=== PATIENT | male | born 1955 | race Two or more races ===

== ENCOUNTER 2024-02-09 14:25 | Inpatient (IN) | payer OTHER ==
[~2024-02-09] VITALS: Ht 170.2 cm; Wt 79.0 kg
[~2024-02-09 14:25] MED LIST: ASPI1TAB20 PO; DOXY100C79 PO; HYDR-4902 PO; SENN-58 PO
--- NOTE | 2024-02-09 18:30 | DVH ---
EXAM: XY R KNEE 3V XRAY CLINICAL HISTORY: pain COMPARISON: XY L ANKLE 2 VIEW XRAY on DOS: 02/18/23, XY L ANKLE 2 VIEW XRAY on DOS: 02/16/23 TECHNIQUE: XY R KNEE 3V XRAY Findings/Impression: 3 views of the right knee. There is no evidence of an acute fracture, dislocation, blastic, or lytic lesions. No radiopaque foreign bodies. No joint effusion. Mild soft tissue edema.
[2024-02-09 18:42] LABS: Basophils # (auto) 0.1 10 ^3/uL (0-0.2); Basophils % (auto) 0.7 % (0.0-2.0); Eosinophils # (auto) 0.1 10 ^3/uL (0-0.8); Eosinophils % (auto) 0.5 % (0.0-7.0); Hematocrit 44.7 % (41.0-53.0); Hemoglobin 15.2 g/dL (13.5-17.5); Lymphocytes # (auto) 1.8 10 ^3/uL (0.4-5.4); Lymphocytes % (auto) 17.3 % (10.0-50.0); Mean Corpuscular Hemoglobin 32.2 pg (28.0-32.0); Mean Corpuscular Hgb Conc. 34.1 g/dL (32.0-36.0); Mean Corpuscular Volume 94.6 fL (80.0-100.0); Monocytes # (auto) 0.8 10 ^3/uL (0-1.3); Monocytes % (auto) 7.8 % (0.0-12.0); Neutrophils # (auto) 7.7 10 ^3/uL (1.6-8.6); Neutrophils % (auto) 73.7 % (37.0-80.0); Platelet Count (auto) 331 10^3/uL (140-450); Red Blood Cells 4.72 10^6/uL (4.5-5.90); Red Cell Distribution Width 13.3 % (11.8-14.3); White Blood Cell 10.4 10^3/uL (4.4-10.8)
[2024-02-09] MEDS: cloNIDine HCL 0.1 MG TAB PO ONE (18:43)
[2024-02-09] MEDS: KETOROLAC TROMETH 30 MG/ML 1ML VIAL IM ONE (18:43)
[2024-02-09] MEDS ORDERED: cefTRIAXone W LIDOCAINE 1 GM IM IM ONE (18:45)
[2024-02-09 18:52] LABS: Chloride 105 mmol/L (98-107); Sodium 141 mmol/L (136-145)
[2024-02-09 18:53] LABS: Anion Gap 10 (5-15); Carbon Dioxide 26 mmol/L (20-31)
[2024-02-09] MEDS: LIDOCAINE 1% HCL (LOCAL ANESTH.) INJ 20ML MDV ONE (18:54)
[2024-02-09] MEDS: cefTRIAXone SOD 1,000 MG VL IM ONE (18:54)
--- NOTE | 2024-02-09 18:55 | ED.PDOC ---
History of Present Illness HPI Comments 68 y/o M, with a Hx of HTN and previous ankle fracture, presents with c/o right knee pain, swelling, and redness for the past 3 days. He reports no recent injuries along with any additional pertinent or relevant Hx, such as recent travel or strenuous activities. He denies having any tingling, numbness, or ot her associated symptoms or modifiers at this time. Chief Complaint: Lower Extremity Time Seen by MD: 18:10 Primary Care Provider: none Reviewed Notes: Nurses Notes, Medications, Allergies Allergies: Coded Allergies: NO KNOWN ALLERGIES (Unverified , 02/15/23) Home Meds Active Scripts Aspirin (Aspir-81) 81 Mg Tab, 1 TAB PO DAILY, #20 TAB 5 Refills Prov:CORWIN JOSÉ MD 02/20/23 Senna (Senokot) 8.6 Mg Tab, 1 TAB PO QPM, #20 TAB Prov:CORWIN JOSÉ MD 02/20/23 Hydrocodone-Acetaminophen (Hydrocodone Bitartrate/AC 5-325 mg) 1 Tab Tab, 1 TAB PO Q6HPRN PRN, #20 TAB Prov:CORWIN JOSÉ MD 02/20/23 Doxycycline (Monohydrate) (Doxycycline) 100 Mg Cap, 100 MG PO BID, #10 CAP Prov:CORWIN JOSÉ MD 02/20/23 Information Source: Patient Mode of Arrival: Ambulatory Severity: Moderate Timing: Hours Duration: Since onset Prehospital treatment: None Past Medical History PAST MEDICAL HISTORY: HTN Surgical History (Other): previous ankle fracture Family History Family History: Unknown Social History Smoker: Non-Smoker Alcohol: Denies ETOH Use Drugs: Denies Drug Use Lives In: Home Musculoskeletal: reports: others (right knee pain, swelling, and redness ) All Other Systems: Reviewed and Negative (negative unless other stated above or in HPI) Physical Exam General Appearance: No Apparent Distress, Normal HEENT: Normal ENT Inspection, Pharynx Normal, TMs Normal Neck: Full Range of Motion, Non-Tender, Normal, Normal Inspection Respiratory: Chest Non-Tender, Lungs Clear, No Accessory Muscle Use, No Respiratory Distress, Normal Breath Sounds Cardiovascular: No Edema, No JVD, No Murmur, No Gallop, Normal Peripheral Pulses, Regular Rate/Rhythm Breast Exam: Deferred Gastrointestinal: No Organomegaly, Non Tender, No Pulsatile Mass, Normal Bowel Sounds, Soft Genitalia: Deferred Pelvic: Deferred Rectal: Deferred Extremities: No calf tenderness, Normal capillary refill, Normal range of motion, No pedal edema, Swelling, Tender, Other (superficial garza area tenderness with erythema and mild warmth) Musculoskeletal : Apperance: Normal Neurologic: Alert, asset recovery specialist II-XII nml as Tested, No Motor Deficits, Normal Affect, Normal Mood, No Sensory Deficits Cerebellar Function: Normal Reflexes: Normal Skin: Dry, Normal Color, Warm Lymphatic: No Adenopathy Was a procedure done? Was a procedure done?: No Differential Dx Considerations may include: gout, bursitis, septic joint, cellulitis X-Ray, Labs, Meds, VS Vital Signs Date Time Temp Pulse Resp B/P (MAP) Pulse Ox O2 Delivery O2 Flow Rate FiO2 02/09/24 19:15 202/104 02/09/24 19:15 65 17 202/104 (136) 98 02/09/24 18:43 199/110 02/09/24 18:38 82 18 97 Room Air 02/09/24 18:38 97.8 82 18 199/110 (139) 97 97.8 02/09/24 15:08 98.0 81 16 162/100 (120) 97 Lab Test 02/09/24 18:23 Range/Units White Blood Count 10.4 4.4-10.8 10^3/uL Red Blood Count 4.72 4.5-5.90 10^6/uL Hemoglobin 15.2 13.5-17.5 g/dL Hematocrit 44.7 41.0-53.0 % Mean Corpuscular Volume 94.6 80.0-100.0 fL Mean Corpuscular Hemoglobin 32.2 H 28.0-32.0 pg Mean Corpuscular Hemoglobin Concent 34.1 32.0-36.0 g/dL Red Cell Distribution Width 13.3 11.8-14.3 % Platelet Count 331 140-450 10^3/uL Mean Platelet Volume 7.0 6.9-10.8 fL Neutrophils (%) (Auto) 73.7 37.0-80.0 % Lymphocytes (%) (Auto) 17.3 10.0-50.0 % Monocytes (%) (Auto) 7.8 0.0-12.0 % Eosinophils (%) (Auto) 0.5 0.0-7.0 % Basophils (%) (Auto) 0.7 0.0-2.0 % Neutrophils # (Auto) 7.7 1.6-8.6 10 ^3/uL Lymphocytes # (Auto) 1.8 0.4-5.4 10 ^3/uL Monocytes # (Auto) 0.8 0-1.3 10 ^3/uL Eosinophils # (Auto) 0.1 0-0.8 10 ^3/uL Basophils # (Auto) 0.1 0-0.2 10 ^3/uL Nucleated Red Blood Cells 0.0 % Erythrocyte Sedimentation Rate Pending Sodium Level 141 136-145 mmol/L Potassium Level 3.4 L 3.5-5.1 mmol/L Chloride Level 105 98-107 mmol/L Carbon Dioxide Level 26 20-31 mmol/L Anion Gap 10 5-15 Blood Urea Nitrogen 15 9-23 mg/dL Creatinine 1.11 0.700-1.30 mg/dL Glomerular Filtration Rate Calc 71 >90 mL/min BUN/Creatinine Ratio 13.5 10.0-20.0 Serum Glucose 117 H 74-106 mg/dL Calcium Level 10.4 8.7-10.4 mg/dL Current Medications Medications (Trade) Dose Ordered Sig/Zeyad Route Start Time Stop Time Status Last Admin Ketorolac Tromethamine (Toradol Injection) 30 mg ONCE ONCE IM 02/09/24 18:15 02/09/24 18:16 DC 02/09/24 18:43 Clonidine HCl (Catapres Tablet) 0.1 mg ONCE ONCE PO 02/09/24 18:45 02/09/24 18:46 DC 02/09/24 18:43 Ceftriaxone Sodium (Rocephin) 1,000 mg ONCE ONCE IM 02/09/24 19:00 02/09/24 19:12 DC 02/09/24 18:[address] [address] Ph: [phone] DIAGNOSTIC IMAGING Diagnostic Imaging Report : [id number] Signed PATIENT: GRACIELA GUY ACCT: [id number] UNIT: [id number] : 1955 LOC: ER ROOM / BED: / AGE / SEX: 68 / M ADM STATUS: REG ER SERVICE 08 ORDERING PHYSICIAN: WM ALINEZ MD PROCEDURE(s): RKN3 - R KNEE 3V XRAY REASON: pain ORDER NUMBER(s): [id number], ACCESSION NUMBER(s): [id number] EXAM: XY R KNEE 3V XRAY CLINICAL HISTORY: pain COMPARISON: XY L ANKLE 2 VIEW XRAY on DOS: 02/18/23, XY L ANKLE 2 VIEW XRAY on DOS: 02/16/23 TECHNIQUE: XY R KNEE 3V XRAY Findings/Impression: 3 views of the right knee. There is no evidence of an acute fracture, dislocation, blastic, or lytic lesions. No radiopaque foreign bodies. No joint effusion. Mild soft tissue edema. ATED BY: RAMANDEEP HOWE DO DICTATED DATE/TIME: 02/09/241826 SIGNED BY: RAMANDEEP HOWE DO SIGNED DATE/TIME: 02/09/241826 CC: Time of 1ST Reevaluation: 18:40 Reevaluation 1ST: Unchanged Time of 2ND Reevaluation: 19:26 Reevaluation 2ND: Unchanged Patient Education/Counseling: Diagnosis, Treatment, Prognosis, Need For Follow Up Family Education/Counseling: No Family Present Additional Information - I reviewed the following notes from patient's past medical encounters: hospital admission discharge summary report on 02/20/23 - The following tests were ordered, and results were reviewed by me: erythrocyte sediment, bmp, cbc, right knee x-ray - I reviewed and agreed with the following test results read by other provider: right knee X-ray - I discussed treatments and results with medical personnel pt had no trouble walking, but since the knee started to hurt, he has been having trouble weight bearing. although septic joint is a differential, it is unlikely, since the area of redness is prepatellar, not in the joint area. pt may have bursitis and cellulitis. i have covered him with antibiotics. he also has uncontrolled and worsening htn, with htn urgency. he is now on labetalol, as he did not respond to clonidine. pt will need to be admitted Departure 1 Departure Time of Disposition: 19:28 Impression: Primary Impression: Knee bursitis Qualified Codes: M70.41 - Prepatellar bursitis, right knee Additional Impressions: Cellulitis Qualified Codes: L03.115 - Cellulitis of right lower limb Hypertensive urgency Disposition: ADMITTED INPATIENT Admit to: ICU Condition: Stable Discharged With: Self Critical Care Note Critical Care Time?: Yes (55 min-critical care time only) Critical care comment: due to concerns for patient's condition worsening, the care required my highest attention and readiness to intervene. i reviewed the medical records, communicated with medical personnel, consultants, ordered the proper tests, treatments, reassessed the response and results. formulated a plan of care . total time does not include any procedures Stability Stability form required: No Heart Score Heart Score: Heart Score Response (Comments) Value History N/A 0 EKG N/A 0 Age N/A 0 Risk Factors N/A 0 Troponin N/A 0 Total 0 I personally scribed for WM LAINEZ MD ([email or web address]) on 02/09/24 at 18:55. Electronically submitted by Efrem Nunez ([email or web address]). WM LAINEZ MD Feb 09, 2024 18:55
[2024-02-09 18:59] LABS: BUN/Creatinine Ratio 13.5 (10.0-20.0); Blood Urea Nitrogen 15 mg/dL (9-23)
[2024-02-09 19:06] LABS: Calcium 10.4 mg/dL (8.7-10.4); Glucose 117 mg/dL (74-106); Potassium 3.4 mmol/L (3.5-5.1)
[2024-02-09] MEDS ORDERED: LABETALOL INJECTION 250 MG in SODIUM CHL 0.9% 200 ML IV ONE (19:30)
[2024-02-09 19:36] LABS: Erythrocyte Sedimentation Rate 34 mm/hr (0-20)
[2024-02-09] MEDS ORDERED: ACETAMINOPHEN 325 MG TAB PO PRN (20:30)
--- NOTE | 2024-02-09 20:59 | DVH ---
CHEST RADIOGRAPH Indication: admission Technique: Single frontal view of the chest was obtained COMPARISON: XY CHEST PORTABLE on DOS: 02/15/23 FINDINGS: Lines and Tubes: None Lungs: Clear Pleura: No effusion. No pneumothorax. Cardiomediastinal contours: Unremarkable Bones: Unremarkable IMPRESSION: 1. No acute disease.
[2024-02-09] MEDS: POTASSIUM CHL 20 Meq TABLET PO ONE (21:16)
[2024-02-09] MEDS: amLODIPine BESYLATE 5 MG TAB PO SCH (21:17)
[2024-02-09] MEDS: LABETALOL HCL 20 MG/4 ML VL IV ONE ×2 (21:18→22:47)
--- NOTE | 2024-02-10 00:51 | DVHHP2 ---
Admitting Diagnosis: Hypertensive urgency, right knee bursitis History of Present Illness History Source: Patient Exam Limitations: No limitations HPI Mr. Mikal Bran is a 68 yo male with a history of hypertension, ankle fracture who presents with a chief complaint of right knee pain and swelling x 3 days. Patient denies any recent trauma to right knee. Patient denies headaches, dizziness, nausea, vomiting, fevers, chills. Patient was found to have elevated blood pressure in the ED uncontrolled by Labetolol and Clonidine. Patient adm itted for further evaluation. Home Meds Active Scripts Aspirin (Aspir-81) 81 Mg Tab, 1 TAB PO DAILY, #20 TAB 5 Refills Prov:CORWIN JOSÉ MD 02/20/23 Senna (Senokot) 8.6 Mg Tab, 1 TAB PO QPM, #20 TAB Prov:CORWIN JOSÉ MD 02/20/23 Hydrocodone-Acetaminophen (Hydrocodone Bitartrate/AC 5-325 mg) 1 Tab Tab, 1 TAB PO Q6HPRN PRN, #20 TAB Prov:CORWIN JOSÉ MD 02/20/23 Doxycycline (Monohydrate) (Doxycycline) 100 Mg Cap, 100 MG PO BID, #10 CAP Prov:CORWIN JOSÉ MD 02/20/23 Past Medical History Cardiac: HTN Pulmonary: No pertinent Hx Central Nervous System: No pertinent Hx GI: No pertinent Hx Hemotology/Oncology: No pertinent Hx Hepatobiliary: No pertinent Hx Psychiatric: No pertinent Hx Musculoskeletal: No pertinent Hx Rheumotologic: No pertinent Hx Infectious Disease: No peritnent Hx ENT: No pertinent Hx Renal/: No pertinent Hx Endocrine: No pertinent Hx Dermatology: No pertinent Hx Smoker: No Hx (Negative) Alocohol: None Drugs: None Lives with: With family Domestic Violence: Neg Review of Systems Constitutional: No symptom reported Ears, Nose, & Throat: No symptom reported Eyes: No symptom reported Pulmonary/Respiratory: No symptom reported Cardiovascular: No symptom reported Gastrointestinal: No symptom reported Genitourinary: No symptom reported Musculoskeletal: Joint pain (right knee), Joint swelling (right knee warm to touch) Skin: No symptom reported Psychiatric: No symptom reported Endocrine: No symptom reported Hemotologic/Lymphatic: No symptom reported H&P Exam Vital Signs Vital Signs Date Time Temp Pulse Resp B/P (MAP) Pulse Ox O2 Delivery O2 Flow Rate FiO2 02/09/24 23:31 97.7 55 13 181/102 (128) 98 97.7 02/09/24 21:03 Room Air* 0 21 General Appeara: Well developed, Well nourished, Normal Appearance Head Exam: Normal inspection Neck Exam: Normal inspection, Non-tender, Normal alignment Eye Exam: bilateral eye Normal inspection, bilateral eye PERRL, bilateral eye EOMI Ear Exam: bilateral ear Auricle normal Nasal Exam: Normal inspection Mouth: Normal Inspection Pulmonary/Respiratory: Normal inspection, Normal breath sounds, Chest non- tender, Lungs clear Cardiovascular/Chest: Normal inspection, Regular rate, Normal Rhythm Peripheral Pulses: 2+ dorsalis pedis (R), 2+ dorsalis pedis (L), 2+ Radial (R), 2+ Radial (L) Abdominal Exam: Normal bowel sounds, Soft Rectal Exam: Deferred Knees: right knee pain, right knee swelling, right knee other (warm to touch) CLINICAL TRIAL ASSISTANT Exam: Normal hearing, Normal speech, PERRL Motor/Sensory: Normal sensory function, Normal motor function Neuro/Mental St: Alert, Oriented Appearance: Appropriate appearance, Appropriate insight Eye contact/ Speech: Cooperative, Good eye contact, Normal speech Thoughts/Psych: Normal thought pattern Skin Exam: Normal inspection, Normal color, Warm/dry Labs/Xrays Labs Test 02/09/24 18:23 Range/Units White Blood Count 10.4 4.4-10.8 10^3/uL Red Blood Count 4.72 4.5-5.90 10^6/uL Hemoglobin 15.2 13.5-17.5 g/dL Hematocrit 44.7 41.0-53.0 % Mean Corpuscular Volume 94.6 80.0-100.0 fL Mean Corpuscular Hemoglobin 32.2 H 28.0-32.0 pg Mean Corpuscular Hemoglobin Concent 34.1 32.0-36.0 g/dL Red Cell Distribution Width 13.3 11.8-14.3 % Platelet Count 331 140-450 10^3/uL Mean Platelet Volume 7.0 6.9-10.8 fL Neutrophils (%) (Auto) 73.7 37.0-80.0 % Lymphocytes (%) (Auto) 17.3 10.0-50.0 % Monocytes (%) (Auto) 7.8 0.0-12.0 % Eosinophils (%) (Auto) 0.5 0.0-7.0 % Basophils (%) (Auto) 0.7 0.0-2.0 % Neutrophils # (Auto) 7.7 1.6-8.6 10 ^3/uL Lymphocytes # (Auto) 1.8 0.4-5.4 10 ^3/uL Monocytes # (Auto) 0.8 0-1.3 10 ^3/uL Eosinophils # (Auto) 0.1 0-0.8 10 ^3/uL Basophils # (Auto) 0.1 0-0.2 10 ^3/uL Nucleated Red Blood Cells 0.0 % Erythrocyte Sedimentation Rate 34 H 0-20 mm/hr Sodium Level 141 136-145 mmol/L Potassium Level 3.4 L 3.5-5.1 mmol/L Chloride Level 105 98-107 mmol/L Carbon Dioxide Level 26 20-31 mmol/L Anion Gap 10 5-15 Blood Urea Nitrogen 15 9-23 mg/dL Creatinine 1.11 0.700-1.30 mg/dL Glomerular Filtration Rate Calc 71 >90 mL/min BUN/Creatinine Ratio 13.5 10.0-20.0 Serum Glucose 117 H 74-106 mg/dL Calcium Level 10.4 8.7-10.4 mg/dL Magnesium Level 2.2 1.6-2.6 mg/dL Assessment/Plan Problem List: (1) Hypertensive urgency (2) Knee bursitis Plan 68 yo male with known history of hypertension, ankle fracture presents to the hospital with right knee pain. Patient was found to have uncontrolled hypertension in the ED. 1. Hypertensive urgency 2. Right knee bursitis Admit ICU Cardiology consultation, 2D echocardiogram Nicardipine drip per protocol Antihypertensive Amlodipine Broad spectrum IV antibiotic Ceftriaxone Analgesic as needed for pain management Discussed all above with patient who verbalizes agreement and understanding of care plan. All questions were answered. Discussed assessment and care plan with supervising MD. Plan discussed with: Patient, Other Code Visit Code Visit Total Time (mins): 45 Additional Comments Additional Comments Additional Comments Patient was seen and evaluated by me I agree with the assessment and plan as outlined by my nurse practitioner. VINH WILKISNON Feb 10, 2024 00:51 KG MENON MD Feb 10, 2024 16:27
[2024-02-10] MEDS: cefTRIAXone 1GM/50ML D5W 50 ML IV SCH (08:24)
[2024-02-10] MEDS: FAMOTIDINE 20 MG TAB PO SCH (09:07)
[2024-02-10] MEDS: ENOXAPARIN SOD 40 MG/0.4 ML SYRINGE SC SCH (09:08)
[2024-02-10] MEDS: ASPirin-EC 81 mg tab PO SCH (09:08)
--- NOTE | 2024-02-10 13:50 | DVHSR ---
APPROVED REPORT EXAM: Two-dimensional and M-mode echocardiogram with Doppler and color Doppler. INDICATION Tachycardia RISK FACTORS Height: 5'7", Weight: 111 DIMENSIONS LVDd4.9 (3.8-5.7cm)LA (2D)3.9 (1.9-4.0cm)Aortic Root (2.0-3.7cm) LVDs3.3 (2.5-4.0cm)LA (MM) (1.9-4.0cm)Aortic Cusp Exc (1.5-2.0cm) EF (%) 60.0 (55-70%)Rt. Atrium3.3 (1.9-4.0cm)Asc. Aorta cm Mitral Valve MitralMitral Stenosis E/A ratio0.02D MVAcm2 LEFT VENTRICLE The left ventricle is normal size. There is normal left ventricular wall thickness. The left ventricle is normal in structure and function. Left ventricle systolic function is normal. The Ejection Fraction is 60-65%. No regional wall motion abnormalities noted. RIGHT VENTRICLE The right ventricle is normal size. There is normal right ventricular wall thickness. The right ventricular systolic function is normal. ATRIA The left atrium size is normal. The right atrium size is normal. The interatrial septum is intact with no evidence for an atrial septal defect. MITRAL VALVE The mitral valve is normal in structure and function. There is no evidence of mitral valve prolapse. There is no mitral valve stenosis. There is no mitral valve regurgitation noted. PULMONIC VALVE The pulmonary valve is normal in structure and function. There is no pulmonic valvular regurgitation. There is no pulmonic valvular stenosis. TRICUSPID VALVE The tricuspid valve is normal in structure and function. There is no tricuspid valve regurgitation noted. There is no tricuspid valve prolapse or vegetation. There is no tricuspid valve stenosis. AORTIC VALVE The aortic valve is normal in structure and function. No aortic regurgitation is present. There is no aortic valvular stenosis. There is no aortic valvular vegetation. GREAT VESSELS The aortic root is normal in size. PERICARDIAL EFFUSION There is a no pericardial effusion. Other Information Quality : Technically LimitedRhythm : Technically limited study due to body habitus and patient position. Conclusion The left ventricle is normal size. The left ventricle is normal in structure and function. Left ventricle systolic function is normal. The Ejection Fraction is 60-65%. There is a no pericardial effusion.
[2024-02-10] MEDS: ONDANSETRON HCL 4 MG/2 ML VIAL IV PRN (14:36)
[2024-02-10] MEDS: MORPHINE SULFATE INJ 2 MG/ml SYRG IV PRN (14:37)
--- NOTE | 2024-02-10 16:58 | DVH ---
Exam: US RIGHT LOWER EXTREMITY ULTRASOU Clinical History: Right knee bursitis Comparison: None Technique: Targeted sonographic evaluation of the soft tissues of the right knee was obtained utilizing graysca le and color Doppler imaging. Findings/Impression: Trace joint effusion measures approximately 2.8 x 3.8 x 0.5 cm.
[2024-02-10] MEDS: LOSARTAN POTASSIUM 25 MG TAB PO SCH (17:31)
--- NOTE | 2024-02-10 17:47 | DVHINCON2 ---
Date of service: Feb 10, [address] Menon Reason for Consultation right knee pain History of Present Illness Patient is a 68-year-old male presents to the hospital for the complaint of right knee pain and swelling for the past 3 days. Patient denies any recent trauma to right knee. denies drug use Patient was found to have elevated blood pressure in the ED uncontrolled by Labetolol and Clonidine. Past Medical History Patient's past medical history is significant for hypertension and ankle fracture Social History Alocohol: None Drugs: None Lives with: With family Domestic Violence: Neg Allergies: Coded Allergies: NO KNOWN ALLERGIES (Unverified , 02/15/23) Home Meds Active Scripts Cephalexin Monohydrate (Cephalexin) 500 Mg Cap, 1 CAP PO TID for 7 Days, #21 CAP Prov:KG MENON MD 02/11/24 Hydrocodone-Acetaminophen (Hydrocodone Bitartrate/AC 5-325 mg) 1 Tab Tab, 1 TAB PO Q8HP PRN, #14 TAB Prov:KG MENON MD 02/11/24 Ibuprofen (Ibuprofen) 400 Mg Tab, 1 TAB PO Q6HPRN, #20 TAB Prov:KG MENON MD 02/11/24 Senna (Senokot) 8.6 Mg Tab, 1 TAB PO QPM, #20 TAB Prov:CORWIN JOSÉ MD 02/20/23 Discontinued Scripts Aspirin (Aspir-81) 81 Mg Tab, 1 TAB PO DAILY, #20 TAB 5 Refills Prov:CORWIN JOSÉ MD 02/20/23 Hydrocodone-Acetaminophen (Hydrocodone Bitartrate/AC 5-325 mg) 1 Tab Tab, 1 TAB PO Q6HPRN PRN, #20 TAB Prov:CORWIN JOSÉ MD 02/20/23 Doxycycline (Monohydrate) (Doxycycline) 100 Mg Cap, 100 MG PO BID, #10 CAP Prov:CORWIN JOSÉ MD 02/20/23 Current Medications Current Medications Medications (Trade) Dose Ordered Sig/Zeyad Route PRN Reason Start Time Stop Time Status Last Admin Amlodipine Besylate (Norvasc Tablet) 5 mg DAILY PO 02/09/24 20:15 02/10/24 09:08 Ondansetron HCl (Zofran) 4 mg Q6HPRN PRN IV NAUSEA / VOMITING 02/09/24 20:15 02/10/24 14:36 Morphine Sulfate 2 mg Q6HPRN PRN IV PAIN SCALE 7 THRU 10 02/09/24 20:15 02/10/24 14:37 Nicardipine HCl 250 ml @ 50 mls/hr Q5H IV 02/09/24 20:15 02/10/24 01:46 Ceftriaxone Sodium 50 ml @ 100 mls/hr DAILY IV 02/10/24 10:00 02/10/24 08:24 Aspirin (Ecotrin Enteric Coated Tablet) 81 mg DAILY PO 02/10/24 10:00 02/10/24 09:08 Sennosides (Senokot Tablet) 8.6 mg QPM PO 02/10/24 18:00 Famotidine (Pepcid Tablet) 20 mg DAILY PO 02/10/24 10:00 02/10/24 09:07 Acetaminophen/ Hydrocodone Bitart ([place] 5/325MG Tab) 1 tab Q6HPRN PRN PO PAIN SCALE 1 THRU 6 02/09/24 20:30 Acetaminophen (Tylenol Tablet) 650 mg Q6HPRN PRN PO TEMP GREATER THAN 100.4 02/09/24 20:30 Enoxaparin Sodium (Lovenox) 40 mg DAILY SC 02/10/24 10:00 02/10/24 09:08 Losartan Potassium (Cozaar Tablet) 50 mg DAILY PO 02/10/24 16:45 Review of Systems General: No Fever, chills, night sweats or weight loss HEENT: No Sinus pain, headache, vision changes or sore throat Respiratory: No Cough, dyspnea, sputum production Cardiovascular: No Chest pain, palpitations or leg edema Gastrointestinal: No Nausea, vomiting, diarrhea, abdominal pain Genitourinary: No Dysuria, urinary frequency, hematuria, pelvic pain Skin: No Rashes, ulcers, abscesses, redness or swelling Musculoskeletal: Reports Joint pain [Right knee pain and swelling], muscle pain or swelling Neurologic: No Altered mental status, headaches or focal neurological deficits Psychiatric: No Anxiety, depression or confusion Vital Signs Vital Signs Date Time Temp Pulse Resp B/P (MAP) Pulse Ox O2 Delivery O2 Flow Rate FiO2 02/10/24 16:15 64 133/73 02/10/24 16:00 16 96 02/10/24 12:00 98.9 98.9 02/10/24 07:34 Room Air* 0 21 Physical Exam General Appeara: Well developed, Well nourished, Normal Appearance Head Exam: Normal inspection Neck Exam: Normal inspection, Non-tender, Normal alignment Eye Exam: bilateral eye Normal inspection, bilateral eye PERRL, bilateral eye EOMI Ear Exam: bilateral ear Auricle normal Nasal Exam: Normal inspection Mouth: Normal Inspection Pulmonary/Respiratory: Normal inspection, Normal breath sounds, Chest non-tend er, Lungs clear Cardiovascular/Chest: Normal inspection, Regular rate, Normal Rhythm Abdominal Exam: Normal bowel sounds, Soft Knees: right knee pain, right knee swelling, right knee other (warm to touch) Neuro/Mental St: Alert, Oriented Skin Exam: Normal inspection, Normal color, Warm/dry Labs/Diagnostic Data Labs Test 02/09/24 18:23 Range/Units White Blood Count 10.4 4.4-10.8 10^3/uL Red Blood Count 4.72 4.5-5.90 10^6/uL Hemoglobin 15.2 13.5-17.5 g/dL Hematocrit 44.7 41.0-53.0 % Mean Corpuscular Volume 94.6 80.0-100.0 fL Mean Corpuscular Hemoglobin 32.2 H 28.0-32.0 pg Mean Corpuscular Hemoglobin Concent 34.1 32.0-36.0 g/dL Red Cell Distribution Width 13.3 11.8-14.3 % Platelet Count 331 140-450 10^3/uL Mean Platelet Volume 7.0 6.9-10.8 fL Neutrophils (%) (Auto) 73.7 37.0-80.0 % Lymphocytes (%) (Auto) 17.3 10.0-50.0 % Monocytes (%) (Auto) 7.8 0.0-12.0 % Eosinophils (%) (Auto) 0.5 0.0-7.0 % Basophils (%) (Auto) 0.7 0.0-2.0 % Neutrophils # (Auto) 7.7 1.6-8.6 10 ^3/uL Lymphocytes # (Auto) 1.8 0.4-5.4 10 ^3/uL Monocytes # (Auto) 0.8 0-1.3 10 ^3/uL Eosinophils # (Auto) 0.1 0-0.8 10 ^3/uL Basophils # (Auto) 0.1 0-0.2 10 ^3/uL Nucleated Red Blood Cells 0.0 % Erythrocyte Sedimentation Rate 34 H 0-20 mm/hr Sodium Level 141 136-145 mmol/L Potassium Level 3.4 L 3.5-5.1 mmol/L Chloride Level 105 98-107 mmol/L Carbon Dioxide Level 26 20-31 mmol/L Anion Gap 10 5-15 Blood Urea Nitrogen 15 9-23 mg/dL Creatinine 1.11 0.700-1.30 mg/dL Glomerular Filtration Rate Calc 71 >90 mL/min BUN/Creatinine Ratio 13.5 10.0-20.0 Serum Glucose 117 H 74-106 mg/dL Calcium Level 10.4 8.7-10.4 mg/dL Magnesium Level 2.2 1.6-2.6 mg/dL Assessment Patient is a 68-year-old male presented to the hospital with: right knee pain/ redness possible bursitis Hypertensive urgency Recommendations: recommend knee ultrasound. Xray doesnt show effusion Antibiotic status: Ceftriaxone Sodium pain control 02/08, Knee x-ray: 3 views of the right knee. There is no evidence of an acute fracture, dislocation, blastic, or lytic lesions. No radiopaque foreign bodies. No joint effusion. Mild soft tissue edema. Thank you for consult and for giving an opportunity to take care of this patient. Plan discussed with: Patient HANK BUENO MD Feb 10, 2024 17:47
--- NOTE | 2024-02-10 18:07 | DVHINCON2 ---
DATE OF CONSULTATION: 02/10/2024 REFERRING PHYSICIAN: Dr. Aguila Peterson. CONSULTING PHYSICIAN: Dr. Malachi Luna. INDICATION: Hypertensive urgency. HISTORY OF PRESENT ILLNESS: The patient is a 68-year-old male with a history of hypertension, initially presented to the hospital with complaints of swollen right ankle. Presentation blood pressure was noted to be markedly elevated. Currently, blood pressure is in the 150s. The patient states that he has not been compliant with medication. PAST MEDICAL HISTORY: Hypertension. MEDICATIONS: Per med rec. ALLERGIES: No known drug allergies. PHYSICAL EXAMINATION: GENERAL: Alert and awake, in no form of cardiopulmonary distress. VITAL SIGNS: Blood pressure 145/81, pulse 65/minute, saturation 96%. HEENT: No carotid bruits. No jugular venous distention. CHEST: Bilateral air entry. CARDIOVASCULAR: Precordial and carotid pulses palpable. PMI nonpalpable. Normal S1, S2. Regular rate and rhythm. No appreciable gallop, rubs, or clicks. EXTREMITIES: Notable for right knee swelling and tenderness. DIAGNOSTIC DATA: CBC is normal. Sodium is 141, potassium is 3.4, creatinine is 1.1. ASSESSMENT: * Right knee swelling. * Hypertensive urgency, possibly triggered by knee * History of hypertension. * Hypokalemia. RECOMMENDATIONS: * Continue current antihypertensive regimen. * If blood pressure remains uncontrolled, increase his amlodipine to 10 mg daily. * Supplement potassium. * Monitor electrolytes closely. * We will review echo once completed. * Continue telemetry monitoring. Thank you for allowing me to participate in the care of this patient. MD DK Martinez/ALEXANDRA TID: [id number] RECEIPT: [id number]
[2024-02-10] MEDS: SENNA 8.6 MG TAB PO SCH (18:52)
[2024-02-10 23:42] VITALS: BP 155/91; PULSE 75; RESP 17; TEMP 97.5; O2SAT 94
[2024-02-10] MEDS: HYDROcodone-ACET 5/325MG TAB PO PRN (23:48)
[2024-02-11] VITALS (9 sets, daily range): BP systolic 111–164; BP diastolic 70–91; PULSE 61–96; RESP 14–17; TEMP 97.5–98.1; O2SAT 94–100
[2024-02-11 07:05] LABS: Anion Gap 7 (5-15); Carbon Dioxide 27 mmol/L (20-31); Chloride 105 mmol/L (98-107); Sodium 139 mmol/L (136-145)
[2024-02-11 07:06] LABS: Calcium 9.8 mg/dL (8.7-10.4)
[2024-02-11 07:10] LABS: Basophils # (auto) 0 10 ^3/uL (0-0.2); Basophils % (auto) 0.5 % (0.0-2.0); Eosinophils # (auto) 0.1 10 ^3/uL (0-0.8); Hematocrit 41.1 % (41.0-53.0); Hemoglobin 13.8 g/dL (13.5-17.5); Mean Corpuscular Hemoglobin 31.9 pg (28.0-32.0); Mean Corpuscular Hgb Conc. 33.6 g/dL (32.0-36.0); Mean Corpuscular Volume 95.1 fL (80.0-100.0); Monocytes # (auto) 0.8 10 ^3/uL (0-1.3); Monocytes % (auto) 8.6 % (0.0-12.0); Neutrophils # (auto) 6.7 10 ^3/uL (1.6-8.6); Neutrophils % (auto) 68.9 % (37.0-80.0); Nucleated Red Blood Cells % 0.1 %; Platelet Count (auto) 331 10^3/uL (140-450); Red Blood Cells 4.32 10^6/uL (4.5-5.90); Red Cell Distribution Width 13.5 % (11.8-14.3); White Blood Cell 9.7 10^3/uL (4.4-10.8)
[2024-02-11 07:12] LABS: BUN/Creatinine Ratio 16.8 (10.0-20.0); Blood Urea Nitrogen 16 mg/dL (9-23); Magnesium 2.1 mg/dL (1.6-2.6)
[2024-02-11 07:13] LABS: Glucose 128 mg/dL (74-106)
--- NOTE | 2024-02-11 14:15 | ECG ---
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
--- NOTE | 2024-02-11 17:39 | DVHPN2 ---
Progress Note - Dictate Date Seen: Feb 11, 2024 Medical Necessity Reason Pt with a Central, PICC or Fol: No Subjective No acute complaint noted at this time. vital signs Vital Sign Date Time Temp Pulse Resp B/P (MAP) Pulse Ox O2 Delivery O2 Flow Rate FiO2 02/11/24 16:16 97.8 62 16 148/90 (109) 95 97.8 02/11/24 08:00 Room Air* 0 21 Total Intake and Output 02/10/24 02/10/24 02/11/24 15:00 23:00 07:00 Intake Total 250 ml Balance 250 ml medications Current Medications Medications Dose Ordered Sig/Zeyad Route Start Time Stop Time Status Last Admin Dose Admin Amlodipine Besylate 5 mg DAILY PO 02/09/24 20:15 02/11/24 09:06 5 MG Ondansetron HCl 4 mg Q6HPRN PRN IV 02/09/24 20:15 02/10/24 18:59 4 MG Morphine Sulfate 2 mg Q6HPRN PRN IV 02/09/24 20:15 02/11/24 15:05 2 MG Ceftriaxone Sodium 50 ml @ 100 mls/hr DAILY IV 02/10/24 10:00 02/11/24 08:53 100 MLS/HR Aspirin 81 mg DAILY PO 02/10/24 10:00 02/11/24 08:54 81 MG Sennosides 8.6 mg QPM PO 02/10/24 18:00 02/10/24 18:52 8.6 MG Famotidine 20 mg DAILY PO 02/10/24 10:00 02/11/24 08:54 20 MG Acetaminophen/ Hydrocodone Bitart 1 tab Q6HPRN PRN PO 02/09/24 20:30 02/10/24 23:48 1 TAB Acetaminophen 650 mg Q6HPRN PRN PO 02/09/24 20:30 Enoxaparin Sodium 40 mg DAILY SC 02/10/24 10:00 02/11/24 08:53 40 MG Losartan Potassium 50 mg DAILY PO 02/10/24 16:45 02/11/24 09:06 50 MG objective General Appearance: Well developed, Well nourished, Normal Appearance Head Exam: Normal inspection Neck Exam: Normal inspection, Non-tender, Normal alignment Eye Exam: bilateral eye Normal inspection, bilateral eye PERRL, bilateral eye EOMI Ear Exam: bilateral ear Auricle normal Nasal Exam: Normal inspection Mouth: Normal Inspection Pulmonary/Respiratory: Normal inspection, Normal breath sounds, Chest non- tender, Lungs clear Cardiovascular/Chest: Normal inspection, Regular rate, Normal Rhythm Abdominal Exam: Normal bowel sounds, Soft Knees: right knee pain, right knee swelling, right knee other (warm to touch) 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 hearing, Normal speech, PERRL Motor/Sensory: Normal sensory function, Normal motor function Neuro/Mental St: Alert, Oriented Skin Exam: Normal inspection, Normal color, Warm/dry laboratory and microbiology Laboratory Tests 02/11/24 06:05 Test 02/11/24 06:05 Range/Units Serum Glucose 128 H 74-106 mg/dL Assessment/Plan Patient is a 68-year-old male presented to the hospital with: Right knee bursitis vs septic vs inflammatory arthritis Hypertensive urgency resolved Recommendations: on Ceftriaxone Sodium, consider taper to oral keflex 7-10 days follow up in clinic in 2 weeks short course of steroids/ ibuprofen also refer to ortho clinic 02/09, Lower extremity ultrasound: Trace joint effusion measures approximately 2.8 x 3.8 x 0.5 cm. 02/08, Knee x-ray: 3 views of the right knee. There is no evidence of an acute fracture, dislocation, blastic, or lytic lesions. No radiopaque foreign bodies. No joint effusion. Mild soft tissue edema. Thank you for consult and for giving an opportunity to take care of this patient. Plan discussed with: Patient HANK BUENO MD Feb 11, 2024 17:39
[2024-02-11] MEDS ORDERED: CEPH500C PO (18:00)
[2024-02-11] MEDS ORDERED: IBUP-1453 PO (18:00)
[2024-02-11] MEDS ORDERED: HYDR-4902 PO (18:00)
--- NOTE | 2024-02-11 18:03 | DVHDS2 ---
Discharge Summary Date of Admission Feb 10, 2024 at 00:02 Date of Discharge: Feb 11, 2024 Labs/Diagnostic Data: Laboratory Results Test 02/11/24 06:05 02/09/24 18:23 White Blood Count 9.7 10^3/uL (4.4-10.8) Red Blood Count 4.32 10^6/uL (4.5-5.90) Hemoglobin 13.8 g/dL (13.5-17.5) Hematocrit 41.1 % (41.0-53.0) Mean Corpuscular Volume 95.1 fL (80.0-100.0) Mean Corpuscular Hemoglobin 31.9 pg (28.0-32.0) Mean Corpuscular Hemoglobin Concent 33.6 g/dL (32.0-36.0) Red Cell Distribution Width 13.5 % (11.8-14.3) Platelet Count 331 10^3/uL (140-450) Mean Platelet Volume 7.3 fL (6.9-10.8) Neutrophils (%) (Auto) 68.9 % (37.0-80.0) Lymphocytes (%) (Auto) 21.0 % (10.0-50.0) Monocytes (%) (Auto) 8.6 % (0.0-12.0) Eosinophils (%) (Auto) 1.0 % (0.0-7.0) Basophils (%) (Auto) 0.5 % (0.0-2.0) Neutrophils # (Auto) 6.7 10 ^3/uL (1.6-8.6) Lymphocytes # (Auto) 2.0 10 ^3/uL (0.4-5.4) Monocytes # (Auto) 0.8 10 ^3/uL (0-1.3) Eosinophils # (Auto) 0.1 10 ^3/uL (0-0.8) Basophils # (Auto) 0 10 ^3/uL (0-0.2) Nucleated Red Blood Cells 0.1 % Sodium Level 139 mmol/L (136-145) Potassium Level 4.0 mmol/L (3.5-5.1) Chloride Level 105 mmol/L (98-107) Carbon Dioxide Level 27 mmol/L (20-31) Anion Gap 7 (5-15) Blood Urea Nitrogen 16 mg/dL (9-23) Creatinine 0.95 mg/dL (0.700-1.30) Glomerular Filtration Rate Calc 86 mL/min (>90) BUN/Creatinine Ratio 16.8 (10.0-20.0) Serum Glucose 128 mg/dL (74-106) Calcium Level 9.8 mg/dL (8.7-10.4) Magnesium Level 2.1 mg/dL (1.6-2.6) Erythrocyte Sedimentation Rate 34 mm/hr (0-20) Other Laboratory Tests 02/11/24 06:05 Brief Hx & Hospital Course: 68-year-old male with a known history of hypertension initially was sent to the hospital with right knee pain and redness found to have right knee cellulitis and bursitis. Patient was seen by infectious disease specialist has been as by me. Patient underwent ultrasound of the right knee which shows trace joint effusion. Patient can follow up as an outpatient with orthopedics has been as Infectious Disease. Patient was being discharged on [place] ibuprofen and antibiotic. Condition at Discharge: Stable Final Diagnosis/Problems List 1. Hypertensive urgency resolved 2. Right knee bursitis/cellulitis Discharge Disposition: Home SNF Discharge Will this Physician continue t: No Discharge Statement: "Patient was advised to return to the ER or call 911 if any headaches, dizziness, shortness of breath, chest pain, abdominal pain, bleeding, fevers, or worsening of medical condition. Patient was counseled about treatment plan, medications, possible side effects, patientverbalized understanding. All questions were answered to the best of my ability. This discharge took greater then 30 minutes in planning, reviewing documentation, counseling the patient, and discussing with other team members." ASSESSMENT ASSESSMENT Assessment Date of Service: Feb 11, 2024 Billing Provider: KG MENON MD Common Visit Codes: NOT BILLABLE KG MENON MD Feb 11, 2024 18:03
== END 2024-02-11 21:00 | disposition home or self-care (01) | DRG 603 ==
LOC: ER 14:25 → TELE 02-10 00:02 → TELE-WESTW 02-10 23:23
PROVIDERS: ADMIT Nurse Practitioner Family; ATTEND Nurse Practitioner Family
DX: L03.115 Cellulitis of right lower limb (principal); M70.41 Prepatellar bursitis, right knee; E87.6 Hypokalemia; M25.461 Effusion, right knee; I16.0 Hypertensive urgency; I10 Essential (primary) hypertension; Z79.82 Long term (current) use of aspirin; Z79.899 Other long term (current) drug therapy; Z79.891 Long term (current) use of opiate analgesic; Z91.148 Patient's other noncompliance with medication regimen for other reason; Z87.891 Personal history of nicotine dependence
CPT/HCPCS: 36415; 71045; 73562; 76881; 80048; 83735; 85025; 85652; 93005; 93306; 97110; 97116; 97530; 99291; G0378; J0696; J1885; J2003; J2405